=== PATIENT | female | born 1990 | race Caucasian/White ===

== ENCOUNTER 2025-05-21 23:40 | Emergency (ER) | payer OTHER, SELFPAY ==
[2025-05-21 23:44] VITALS: BP 157/92; PULSE 90; RESP 18; TEMP 36.6; O2SAT 98; BMI 27.2
[2025-05-22] MEDS: MORPHINE 4 MG/ML INJ IVP (00:15)
[2025-05-22 00:17] LABS: Hematocrit* 42.4 % (33.0-51.0); Hemoglobin* 14.1 gm/dL (12.0-16.0); Immature Granulocytes Abs Auto 0.02 K/uL (0.00-0.30); Immature Granulocytes Pct Auto 0.2 %; Lymphocytes Absolute Auto 2.10 K/uL (0.90-2.90); Mean Corpuscular HGB Conc 33 gm/dL (32-36); Mean Corpuscular Hemoglobin 28 pg (26-34); Mean Corpuscular Volume 84 fL (80-100); RDW Coefficient of Variation % 12.8 % (11.5-15.5); Red Blood Count* 5.06 m/uL (4.00-5.20); Slide Review Reflex No; White Blood Count* 10.77 K/uL (4.50-11.00)
[2025-05-22] MEDS: ONDANSETRON 2 MG/ML inj 4 MG IVP (00:20)
[2025-05-22 00:22] VITALS: O2SAT 98
[2025-05-22 00:29] LABS: Albumin* 4.5 g/dL (3.3-5.0); Chloride* 105 mmol/L (96-114)
[2025-05-22 00:30] LABS: Potassium* 3.8 mmol/L (3.6-5.1); Sodium* 138 mmol/L (135-149)
[2025-05-22 00:32] LABS: Alanine Aminotransferase* 25 U/L (4-35); Alkaline Phosphatase* 86 U/L (40-150); Anion Gap 10 mEq/L (7-15); Aspartate Amino Transferase* 26 U/L (12-35); Bilirubin Total* 0.4 mg/dL (0.1-1.5); Blood Urea Nitrogen* 9 mg/dL (5-24); Carbon Dioxide* 23 mmol/L (20-32); Creatinine* 0.9 mg/dL (0.5-1.5); Est. Creatinine Clearance* 62.07; Estimated Glomerular Filt Rate 85 ml/min; Total Protein* 8.3 g/dL (6.0-8.3)
[2025-05-22 00:33] LABS: Calcium* 9.6 mg/dL (8.4-10.6); Glucose* 131 mg/dL (60-115)
[2025-05-22] MEDS: LACTATED RINGERS 1000 ML 1,000 ML IV (00:35)
--- NOTE | 2025-05-22 00:36 | ED.GENADULT ---
HPI - General Adult General Date Seen: 05/22/25 Chief complaint: Flank Pain Stated complaint: R flank pain/vomiting Time Seen by Provider: 05/21/25 23:43 Source: patient Mode of arrival: ambulatory Limitations: no limitations History of Present Illness HPI narrative: Patient is a 34-year-old female presenting to emergency department for right-sided flank pain. She states pain started around 11:00 and has been getting worse. Describes the pain as a 7 out 10 in intensity. Denies ever having pain like this before. States it is a sharp stabbing pain in her right flank and only thing that seems to make it better is when she eats a little bit. She does state though she has been unable to eat or drink much as she is very nauseated and throws it up. Has tried Tylenol ibuprofen states she has thrown up those pills also. Does have a history of Crohn's disease but states is very well managed she has not had a flare in a long time. States when she does have flared using the and her abdomen. She has never had Crohn flare causing flank pain. Has not had any fevers or chills. Denies diarrhea, constipation, dysuria, hematuria, lightheadedness, dizziness, weakness, numbness, chest pain, shortness of breath. No other concerns noted at this time. Related Data Previous Rx's ?Medication ?Instructions ?Recorded oxycodone 5 mg tablet 5 mg PO Q6H PRN pain #8 tabs 05/22/25 tamsulosin 0.4 mg capsule (Flomax) 0.4 mg PO QHS #14 caps 05/22/25 Allergies Allergy/AdvReac Type Severity Reaction Status Date / Time metronidazole (From Flagyl) Allergy Verified 05/21/25 23:50 Review of Systems Status of ROS: Reports: 10 or more systems reviewed and unremarkable except as noted in History and below PFS PFS Social History Smoking Status: Never smoker Exam Narrative: Exam Narrative: Const: Well-nourished, Well-developed, in moderate distress Eyes: PERRL, no conjunctival injection, and symmetrical lids HENT: Atraumatic external nose and ears. Moist mucous membranes. Neck: Symmetric, trachea midline, No thyromegaly. CVS: RRR, No murmurs or gallops. Peripheral pulses 2+ and equal in all extremities RESP: Unlabored respiratory effort. Clear to auscultation bilaterally. GI: Nontender/Nondistended, No rebound or guarding. Right CVA tenderness MSK:Extremities w/o deformity, Normal Active ROM Skin: Warm, Dry. No rashes or lesions. Neuro: Normal Muscle tone, No focal neurological deficits. Psych: Awake, Alert, & Oriented x3. Appropriate mood and affect. Const: Vital Signs, click to edit/add: Vital Signs - 24 hr 05/21/25 23:44 05/22/25 00:22 Temperature 97.8 F Pulse Rate [Left P ulse Oximeter] 90 Respiratory Rate 18 Blood Pressure [Ri ght Upper Arm] 157/92 H Pulse Oximetry 98 98 Oxygen Delivery Me thod Room Air Course Vital Signs Vital signs: Initial Vital Signs Temperature 97.8 F 05/21/25 23:44 Temperature Source Temporal Artery Scan 05/21/25 23:44 Pulse Rate 90 05/21/25 23:44 Pulse Rhythm Regular 05/21/25 23:44 Respiratory Rate 18 05/21/25 23:44 Blood Pressure 157/92 H 05/21/25 23:44 Blood Pressure Mean 113 H 05/21/25 23:44 Blood Pressure Position Sitting 05/21/25 23:44 Pulse Oximetry 98 05/21/25 23:44 Oxygen Delivery Method Room Air 05/21/25 23:44 Vital Signs Temperature 97.8 F 05/21/25 23:44 Pulse Rate 90 05/21/25 23:44 Respiratory Rate 18 05/21/25 23:44 Blood Pressure 157/92 H 05/21/25 23:44 Pulse Oximetry 98 05/21/25 23:44 Oxygen Delivery Method Room Air 05/21/25 23:44 Temperature 97.8 F 05/21/25 23:44 Pulse Rate 90 05/21/25 23:44 Respiratory Rate 18 05/21/25 23:44 Blood Pressure 157/92 H 05/21/25 23:44 Pulse Oximetry 98 05/22/25 00:22 Oxygen Delivery Method Room Air 05/21/25 23:44 Medications Administered Medications: Discontinued Medications Generic Name Dose Route Start Last Admin Trade Name Freq PRN Reason Stop Dose Admin Lactated Ringer's 1,000 mls @ 1,000 mls/hr 05/21/25 23:57 11/04/25 00:35 Lactated Ringers 1000 Ml IV 05/22/25 00:56 1,000 mls/hr .Q1H ONE Administration Ketorolac Tromethamine 15 mg 05/22/25 00:14 05/22/25 00:34 Ketorolac 15 Mg/Ml Inj IVP 05/22/25 00:15 15 mg ONCE ONE Administration Metoclopramide HCl 10 mg 05/22/25 01:12 05/22/25 01:18 Metoclopramide Hcl 5 Mg/Ml Inj IVP 05/22/25 01:13 10 mg ONCE ONE Administration Morphine Sulfate 4 mg 05/21/25 23:57 05/22/25 00:15 Morphine 4 Mg/Ml Inj IVP 05/21/25 23:58 4 mg ONCE ONE Administration Ondansetron HCl 4 mg 05/21/25 23:57 05/22/25 00:20 Ondansetron 2 Mg/Ml Inj IVP 05/21/25 23:58 4 mg ONCE ONE Administration Medical Decision Making MDM Narrative Medical decision making narrative: Patient is a 34-year-old female presenting to emergency department for right flank pain. The differential diagnosis of flank pain including vascular causes such as aortic aneurysm, renal vascular issues, aortic dissection, mesenteric ischemia, nephrolithiasis, ureter stricture, pyelonephritis. Medicines are otherwise stable my concern for an aortic aneurysm or aortic dissection is low. Will do CT scan with IV contrast for better evaluation. Were also order a lipase as this could be some referred pain, CBC, CMP. Urinalysis ordered. Toradol and morphine given for pain and Zofran for nausea. Also given a L of fluids for likely dehydration from her vomiting. Patient's lab work returned showing no concerning abnormalities. Urinalysis does show blood in the urine but no signs of UTI. CT scan reviewed by myself and the radiologist shows a 4 mm stone at the right you UVJ with right-sided hydronephrosis. This consistent with the patient's symptoms. I also gave her Toradol for pain and after that she was feeling better. Was given a discharge her she started feeling nauseated again and Reglan was given for nausea. She then was having more pain and dilaudid was ordered. She is feeling better now states he feels comfortable with discharge. I will prescribe her Flomax her pharmacy. Zofran, Toradol, oxycodone was prescribed via [facility]. I spoke to her about using Toradol and her Crohn's disease. I explained that it is an NSAID. She states she uses NSAIDs occasionally when she needs them. After shared decision making the prescription was sent in I informed her to use her best judgment on if she wants to take it. I was unable to give a full prescription of oxycodone via [facility] and was send the rest of the prescription via her pharmacy Lab Data Labs: Lab Results 05/22/25 05/22/25 Range/Units 00:10 00:50 WBC 10.77 (4.50-11.00) K/uL RBC 5.06 (4.00-5.20) m/uL Hgb 14.1 (12.0-16.0) gm/dL Hct 42.4 (33.0-51.0) % MCV 84 (80-100) fL MCH 28 (26-34) pg MCHC 33 (32-36) gm/dL RDW Coeff of Marii 12.8 (11.5-15.5) % Plt Count 318 (140-440) K/uL Neut % (Auto) 68.4 (42.0-72.0) % Lymph % (Auto) 19.3 L (20-44) % [place] % (Auto) 9.6 (0.0-11.0) % Eos % (Auto) 1.9 (0.0-7.0) % Baso % (Auto) 0.6 (0.0-3.0) % Neut # (Auto) 7.37 H (1.7-7.0) K/uL Lymph # (Auto) 2.10 (0.90-2.90) K/uL [place] # (Auto) 1.00 H (0.00-0.90) K/UL Eos # (Auto) 0.21 (0.00-0.50) K/uL Baso # (Auto) 0.06 (0.00-0.30) K/uL Abs Immat Gran (auto) 0.02 (0.00-0.30) K/uL Imm/Tot Granulo (auto) 0.2 % Sodium 138 (135-149) mmol/L Potassium 3.8 (3.6-5.1) mmol/L Chloride 105 (96-114) mmol/L Carbon Dioxide 23 (20-32) mmol/L Anion Gap 10 (7-15) mEq/L BUN 9 (5-24) mg/dL Creatinine 0.9 (0.5-1.5) mg/dL Estimated Creat Clear 62.07 Estimated GFR 85 ml/min Glucose 131 H (60-115) mg/dL Calcium 9.6 (8.4-10.6) mg/dL Total Bilirubin 0.4 (0.1-1.5) mg/dL AST 26 (12-35) U/L ALT 25 (4-35) U/L Alkaline Phosphatase 86 (40-150) U/L Total Protein 8.3 (6.0-8.3) g/dL Albumin 4.5 (3.3-5.0) g/dL Lipase 73 (23-300) U/L Urine Color Yellow (Yellow) Urine Appearance Cloudy A (Clear) Urine pH 7.0 (5.0-8.5) Ur Specific [place] 1.015 (1.000-1.030) Urine Protein 1+ A (Negative) Urine Glucose (UA) Negative (Negative) Urine Ketones Trace A (Negative) Urine Blood 3+ A (Negative) Urine Nitrite Negative (Negative) Urine Bilirubin Negative (Negative) Urine Urobilinogen 0.2 (0.2-1.0) Ur Leukocyte Esterase Negative (Negative) Urine RBC 25-50 A (0-2) Urine WBC 2-5 (0-5) Ur Squamous Epith Cells Few (None-Few) Urine Bacteria Few A (None) Imaging Data CT scan abdomen and pelvis: Attestation: I have reviewed the pertinent imaging results. Radiologist's impression: A 4 mm stone at the right UVJ is causing moderate hydronephrosis. Please note that all CT scans at this facility use dose modulation, iterative reconstruction, and/or weight-based dosing when appropriate to reduce radiation dose to as low as reasonably achievable. Dictated by Nitin Yang MD @ 05/22/2025 12:37:38 AM Discharge Plan Discharge Clinical Impression: Urolithiasis Qualifiers: Urinary calculus location: ureter Qualified Code(s): N20.1 - Calculus of ureter Patient Disposition: Home, Self-Care Condition: Improved Instructions: Renal Colic (ED) Additional Instructions: Take the Toradol as needed for pain. When using the Toradol do not take other NSAIDs, for example naproxen or ibuprofen. You can use Tylenol though as it is a different class of drugs. Use Zofran as needed for pain. He can pick will see so from [facility]. If you need further pain control I did also send prescription for oxycodone to [facility]. I was only able to send for pills to [facility] and was said another 8 to your pharmacy. Return to emergency department for new or worsening symptoms. Do recommend following up with the primary care provider for possible Urology referral if you are unable to pass the stone. 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 Prescriptions: New tamsulosin [Flomax] 0.4 mg capsule 0.4 mg PO QHS Qty: 14 0RF oxycodone 5 mg tablet 5 mg PO Q6H PRN (Reason: pain) Qty: 8 0RF Follow Up/Referrals: Provider,Not a Local [Primary Care Provider, Family Practice] Stand Alone Forms: [employer] Info Instructions
[2025-05-22 01:05] LABS: Appearance Urine Cloudy (Clear)
[2025-05-22] MEDS: METOCLOPRAMIDE HCL 5 MG/ML INJ 10 MG IVP (01:18)
[2025-05-22] MEDS: TAMSULOSIN HCL 0.4 MG CAPSULE PO (01:55)
[2025-05-22 02:00] VITALS: PULSE 72; O2SAT 100
--- NOTE | 2025-05-22 02:09 | ED.NURSE ---
Pt reports ready to go home. Pt called and is on his way
--- NOTE | 2025-05-22 23:57 | CRLHL7_ITS ---
For Patients: As a result of the Century Cures Act, medical imaging exams and procedure reports are released immediately into your electronic medical record. You may view this report before your referring provider. If you have questions, please contact your health care provider. INDICATION: Right flank pain. TECHNIQUE: CT abdomen and pelvis acquired with 68 cc Isovue 370 IV contrast. COMPARISON: None. FINDINGS: Lower chest: Unremarkable. Liver: Unremarkable. Normal in size and attenuation. No suspicious masses. Gallbladder and bile ducts: Unremarkable. No stones or inflammation. No biliary dilatation. Pancreas: Unremarkable. No mass or inflammation. Spleen: Unremarkable. Normal in size. No masses. Adrenal glands: Unremarkable. No nodules. Kidneys: A 4 mm stone at the right ureterovesical junction is causing moderate hydronephrosis. No other stones. GI tract: Unremarkable. Normal in caliber. No sign of mass or inflammation. Normal appendix. Vasculature: Abdominal aorta is normal in caliber. Mesenteric arteries are patent. Lymph nodes: No lymphadenopathy. Peritoneum/Abdominal Wall: Unremarkable. No sign of mass or infiltration. No free air or significant free fluid. Pelvis: IUD appears in proper position. Bones: Unremarkable for age. IMPRESSION: A 4 mm stone at the right UVJ is causing moderate hydronephrosis. Please note that all CT scans at this facility use dose modulation, iterative reconstruction, and/or weight-based dosing when appropriate to reduce radiation dose to as low as reasonably achievable. Dictated by Nitin Yang MD @ 05/22/2025 12:37:38 AM (Electronically Signed)
== END 2025-05-22 02:14 | disposition home or self-care (01) ==
PROVIDERS: Emergency Provider Student in an Organized Health Care Education/Training Program
DX: N20.9 Urinary calculus, unspecified (principal); K50.90 Crohn's disease, unspecified, without complications
CPT/HCPCS: 36415; 74177; 80053; 81001; 82565; 83690; 85025; 87086; 94761; 96361; 96374; 96375; 99284; 99285; A9270; J1171; J1885; J2270; J2405; J2765; J7120; Q9967